=== PATIENT | male | born 2005 | race Caucasian/White ===

== ENCOUNTER 2023-03-15 06:08 | Inpatient (IN) ==
[2023-03-15] MEDS ORDERED: NS 1,000 ML IV 1,000 ML IV ONE ×2 (06:13→07:25)
[2023-03-15] MEDS ORDERED: NS 1,000 ML IV 1,000 ML ONE ×2 (06:14→07:30)
[2023-03-15] MEDS ORDERED: ZOFRAN INJ 4 MG VIAL IVP ONE (06:31)
[2023-03-15] MEDS ORDERED: ZOFRAN INJ 4 MG VIAL ONE (06:31)
[2023-03-15 06:36] LABS: BASOPHILS # (AUTO) 0.2 X10^3/uL (0.0-0.1); BASOPHILS % (AUTO) 0.7 % (0.2-1.0); EOSINOPHILS # (AUTO) 0.1 x10^3/uL (0.0-0.2); EOSINOPHILS % (AUTO) 0.3 % (0.9-2.9); HEMATOCRIT 54.3 % (42.0-54.0); HEMOGLOBIN 18.6 g/dL (13.5-18.0); LYMPHOCYTES # (AUTO) 4.3 X10^3/uL (1.3-2.9); LYMPHOCYTES % (AUTO) 15.8 % (21.0-51.0); MEAN CORPUSCULAR HEMOGLOBIN 30.8 pg (27.0-34.0); MEAN CORPUSCULAR HGB CONC 34.3 g/dL (33.0-35.0); MEAN CORPUSCULAR VOLUME 89.9 fL (80.0-100.0); MEAN PLATELET VOLUME 9.4 fL (7.4-11.0); MONOCYTES # (AUTO) 2.8 x10^3/uL (0.3-0.8); MONOCYTES % (AUTO) 10.2 % (0.0-13.0); NEUTROPHILS # (AUTO) 19.8 x10^3/uL (2.2-4.8); PLATELET COUNT 327 X10^3/uL (150.0-450.0); RED BLOOD COUNT 6.04 X10^6/uL (4.7-6.0); RED CELL DISTRIBUTION WIDTH 12.9 % (11.6-16.5); WHITE BLOOD COUNT 27.1 X10^3/uL (3.6-10.0)
--- NOTE | 2023-03-15 06:39 | DR.ABDMALE ---
HPI <Kayla Valenciaix - Last Filed: 03/16/23 05:22> Time seen Time Seen by Provider: 03/15/23 06:38 PCP Primary Care Physician: Ramon Valentino Chief Complaint Doctors Comments: Patient presents with Rt flank pain that began at 03:00am today. Patient states that the pain is severe.Patient had 1 episode of emesis this am.Patient is a type 1 Diabetic.The last time he took any insulin was yesterday afternoon. Patient states that he has had a cough productive of yellow green sputum x 1 week.Patient denies:headache,sob,dhiraj tmesis,diarrhea,hematochezia,chest pain,sob. Chief Complaint:: Patient brought into ER via EMS. pt complains of right lower quadrant pain that started at 3am this morning and vomiting x1 day. abdomen tender upon palpation. pt rates abdominal pain 9/. COVID-19 Coronavirus risk:travel/contact w/high risk person: No Has patient experienced Coronavirus symptoms: No Mode of arrival Mode of Arrival: EMS Timing Onset of Chief Complaint: 03/14/23 PMH <Kayla Valenciaix - Last Filed: 03/16/23 05:22> PMH Past Medical History: Yes Past Medical History: Diabetes Past Medical History Comment: type 1 DM Past Surgical History: Yes Family History History of Family Medical Conditions: No Social History Does patient currently use any type of tobacco product: Yes Have you used tobacco products in the last 12 months: Yes Type of Tobacco Use: Cigarettes Does any household member use tobacco: Yes Alcohol Use: None Do you use any recreational Drugs:: No Lives With: Friend Lives Where: Home Travel Risk Coronavirus risk:travel/contact w/high risk person: No Has patient experienced Coronavirus symptoms: No Infectious screening Have you traveled outside the country in the last 6 months?: No Isolation: Standard ROS <Kayla Valenciaix - Last Filed: 03/16/23 05:22> Review of Systems Constitutional: Malaise; negative Chills or Fever Eyes: No Symptoms Reported ENTM: No Symptoms Reported Respiratoy: No Symptoms Reported and Productive Cough (yellow-green sputum); negative Short of Breath, Wheezing or Hemoptysis Cardiovascular: No Symptoms Reported Gastrointestinal/Abdominal: Abdominal Pain, Nausea and Vomiting (since 12:00am) Genitourinary: No Symptoms Reported Neurological: Weakness; negative Headache Musculoskeletal: No Symptoms Reported Integumentary: No Symptoms Reported Hematologic/Lymphatic: No Symptoms Reported Endocrine: No Symptoms Reported Psychiatric: No Symptoms Reported All Other Systems: Reviewed and Negative PE <Kayla Anand - Last Filed: 03/16/23 05:22> Vital Signs Vital Signs: Temp Pulse Resp BP Pulse Ox O2 Del Method 03/15/23 07:16 20 03/15/23 08:31 114/69 03/15/23 08:31 104 H 99 03/15/23 08:30 104 H 99 03/15/23 08:15 93 H 100 03/15/23 08:12 103 H 100 03/15/23 08:00 106/65 03/15/23 07:30 130/78 03/15/23 07:03 126 H 97 03/15/23 07:01 132 H 96 03/15/23 07:01 146/61 03/15/23 07:00 122 H 98 03/15/23 06:56 114 H 97 03/15/23 06:56 118/58 03/15/23 06:45 131 H 98 03/15/23 06:34 131 H 96 03/15/23 06:46 22 03/15/23 06:13 97.5 F L 127 H 23 125/78 97 Room Air <Felipe Cnotreras - Last Filed: 03/15/23 11:12> Vital Signs Vital Signs: Temp Pulse Resp BP Pulse Ox O2 Del Method 03/15/23 07:16 20 03/15/23 08:31 114/69 03/15/23 08:31 104 H 99 03/15/23 08:30 104 H 99 03/15/23 08:15 93 H 100 03/15/23 08:12 103 H 100 03/15/23 08:00 106/65 03/15/23 07:30 130/78 03/15/23 07:03 126 H 97 03/15/23 07:01 132 H 96 03/15/23 07:01 146/61 03/15/23 07:00 122 H 98 03/15/23 06:56 114 H 97 03/15/23 06:56 118/58 03/15/23 06:45 131 H 98 03/15/23 06:34 131 H 96 03/15/23 06:46 22 03/15/23 06:13 97.5 F L 127 H 23 125/78 97 Room Air MDM <Kayla Anand - Last Filed: 03/16/23 05:22> Differential Diagnosis Differential Diagnosis: Appendicitis, Bowel Obstruction, Cholcystitis, Cholelethiasis, Diverticular disease, Pancreatitis, Urinary tract infection and Urolithiasis Other differential diagnosis: dka COURSE <Kayla Anand - Last Filed: 03/16/23 05:22> Treatment Treatment: Patient was brought to a monitored room.IV access was initiated and labs were drawn. Patient hr was 122-140's.NS 1liter ( 1st bolus) iv was administered. Patient was given zofran 4mg iv because of intractable vomiting. He was given morphine 2mg iv for Rt flank pain. Patient's serum glucose was 551.He received regular insulin 5 units iv.The CMP: revealed a C02 of 10, creat 2.14,CBC :wbc 27.1.Patient is a type 1 diabetic and is in DKA. Insulin drip at 6units/hr iv has been initiated (130lbs =59.0kg). Patients BG check is 384.Patient 's abd/pelvis CT w/o contrast: no diverticulitis,u rterolithiasis,kidney inflammation,appendicitis. Blood cx were ordered and patient has received rocephin 2g iv.Hgb A1c is 14,Etoh is neg,amylase and lipase wnl,crp wnl, serum acetone moderate,lactic acid pending.Patient iscurrently receving NS 1 liter( 2nd bolus) iv.CXR: no acute abnormality. Signed out to Dr Contreras <Felipe Contreras - Last Filed: 03/15/23 11:12> Treatment Treatment: Patient was brought to a monitored room.IV access was initiated and labs were drawn. Patient hr was 122-140's.NS 1liter ( 1st bolus) iv was a dministered. Patient was given zofran 4mg iv because of intractable vomiting. He was given morphine 2mg iv for Rt flank pain. Patient's serum glucose was 551.He received regular insulin 5 units iv.The CMP: revealed a C02 of 10, creat 2.14,CBC :wbc 27.1.Patient is a type 1 diabetic and is in DKA. Insulin drip at 6units/hr iv has been initiated (130lbs =59.0kg). Patients BG check is 384.Patient 's abd/pelvis CT w/o contrast: no diverticulitis,urterolithiasis,kidney inflammation,appendicitis. Blood cx were ordered and patient has received rocephin 2g iv.Hgb A1c is 14,Etoh is neg,amylase and lipase wnl,crp wnl, serum acetone moderate,lactic acid pending.Patient iscurrently receving NS 1 liter( 2nd bolus) iv.CXR: no acute abnormality. Signed out to Dr Contreras . 0842 - pt remaining stable, glucose coming down. Call put out to Dr Austin for admission. 0930 - Dr Austin notified by his RN, Nicki. ROR <Kayla Kika - Last Filed: 03/16/23 05:22> Labs Reviewed Laboratory Results Reviewed?: Yes Result Diagrams: 03/15/23 06:20 03/15/23 07:17 Laboratory: WBC 27.1 X10^3/uL (3.6-10.0) H 03/15/23 06:20 RBC 6.04 X10^6/uL (4.7-6.0) H 03/15/23 06:20 Hgb 18.6 g/dL (13.5-18.0) H 03/15/23 06:20 Hct 54.3 % (42.0-54.0) H 03/15/23 06:20 MCV 89.9 fL (80.0-100.0) 03/15/23 06:20 MCH 30.8 pg (27.0-34.0) 03/15/23 06:20 MCHC 34.3 g/dL (33.0-35.0) 03/15/23 06:20 RDW 12.9 % (11.6-16.5) 03/15/23 06:20 Plt Count 327 X10^3/uL (150.0-450.0) 03/15/23 06:20 Plt Count Comment Adequate (ADEQUATE) 03/15/23 06:20 MPV 9.4 fL (7.4-11.0) 03/15/23 06:20 Neut % (Auto) 73.0 % (42.0-75.0) 03/15/23 06:20 Lymph % (Auto) 15.8 % (21.0-51.0) L 03/15/23 06:20 Mcminn % (Auto) 10.2 % (0.0-13.0) 03/15/23 06:20 Eos % (Auto) 0.3 % (0.9-2.9) L 03/15/23 06:20 Baso % (Auto) 0.7 % (0.2-1.0) 03/15/23 06:20 Neut # (Auto) 19.8 x10^3/uL (2.2-4.8) H 03/15/23 06:20 Lymph # (Auto) 4.3 X10^3/uL (1.3-2.9) H 03/15/23 06:20 Mcminn # (Auto) 2.8 x10^3/uL (0.3-0.8) H 03/15/23 06:20 Eos # (Auto) 0.1 x10^3/uL (0.0-0.2) 03/15/23 06:20 Baso # (Auto) 0.2 X10^3/uL (0.0-0.1) H 03/15/23 06:20 Absolute Nucleated RBC 0.1 /100WBC 03/15/23 06:20 Total Counted 100 03/15/23 06:20 Neutrophils % (Manual) 51 % (39-76) 03/15/23 06:20 Band Neutrophils % 26 % (0-10) H 03/15/23 06:20 Lymphocytes % (Manual) 16 % (13-43) 03/15/23 06:20 Monocytes % (Manual) 7 % (4-9) 03/15/23 06:20 Plt Morphology Comment Normal (NORMAL) 03/15/23 06:20 RBC Morphology Normal (NORMAL) 03/15/23 06:20 Sample Site Rbra 03/15/23 08:22 ABG pH 7.190 (7.35-7.45) L* 03/15/23 08:22 ABG pCO2 25.0 mmHg (35.0-45.0) L 03/15/23 08:22 ABG pO2 96.0 mmHg (80.0-100.0) 03/15/23 08:22 ABG HCO3 9.5 mmol/L (22-26) L* 03/15/23 08:22 ABG O2 Saturation 95.0 % (90-100) 03/15/23 08:22 ABG Base Excess -17.1 mmol/L (-2.0-2.0) L 03/15/23 08:22 Prudencio Test N/a 03/15/23 08:22 A-a Gradient 22.0 mmHg 03/15/23 08:22 FiO2 21.0 03/15/23 08:22 Blood Gas Comments Pt dilshad well elj 03/15/23 08:22 Sodium 138 mmol/L (136-145) 03/15/23 07:17 Corrected Sodium 146 mmol/L (136-145) H 03/15/23 07:17 Potassium 5.0 mmol/L (3.5-5.1) 03/15/23 07:17 Chloride 94 mmol/L (98-107) L 03/15/23 07:17 Carbon Dioxide 11.5 mmol/L (21-32) L* 03/15/23 07:17 BUN 22 mg/dL (7-18) H 03/15/23 07:17 Creatinine 1.93 mg/dL (0.70-1.30) H 03/15/23 07:17 Est GFR (MDRD) Af Amer 58 (>60) L 03/15/23 07:17 Est GFR (MDRD) Non-Af 48 (>60) L 03/15/23 07:17 Glucose 454 mg/dL (65-99) H 03/15/23 07:17 POC Glucose (mg/dL) 310 mg/dL (65-99) H 03/15/23 08:33 Hemoglobin A1c 14.0 % 03/15/23 06:20 Lactic Acid 4.3 mmol/L (0.4-2.0) H 03/15/23 07:06 Calcium 9.1 mg/dL (8.5-10.1) 03/15/23 07:17 Corrected Calcium TNP 03/15/23 06:20 Total Bilirubin 1.00 mg/dL (0.2-1.0) 03/15/23 06:20 AST 26 Units/L (15-37) 03/15/23 06:20 ALT 31 Units/L (12-78) 03/15/23 06:20 Alkaline Phosphatase 143 Units/L (75-270) 03/15/23 06:20 Creatine Kinase 53 Units/L (39-308) 03/15/23 07:17 Troponin I High Sens < 4.0 ng/L (4.0-60.0) L 03/15/23 07:17 C-Reactive Protein 1.40 mg/L (0-3.0) 03/15/23 07:06 Total Protein 9.2 g/dL (6.4-8.2) H 03/15/23 06:20 Albumin 5.0 g/dL (3.4-5.0) 03/15/23 06:20 Globulin 4.2 g/dL (2.5-4.5) 03/15/23 06:20 Albumin/Globulin Ratio 1.2 Ratio (1.1-2.1) 03/15/23 06:20 Amylase 52 Units/L (25-115) 03/15/23 06:20 Lipase 46 Units/L (73-393) L 03/15/23 06:20 Ethyl Alcohol mg/dL < 3 mg/dL (0-19.9) 03/15/23 07:06 Acetone, Semi-Quant Moderate (NEGATIVE) H 03/15/23 07:17 XRAY XRAY Interpreted by: Radiologist X-ray Results: HISTORY Leukocytosis STUDY Chest AP portable COMPARISON None FINDINGS Heart size is normal. Shirley are normal. Lung chavez are clear. No pleural effusions are identified. Bony thorax is unremarkable. IMPRESSION No significant abnormality identified Electronically signed by: GENNA PEGUERO (March 15, 2023 07:18:32) HISTORY Nausea, right upper quadrant pain STUDY CT abdomen pelvis without contrast Technique: Axial noncontrast images with coronal and sagittal reformats. Dose reduction procedures were used with mA/kv adjusted for body size. THIS EXAMINATION IS LIMITED DUE TO THE LACK OF INTRAVENOUS CONTRAST. The examination was performed in this manner at the sole discretion of the ordering caregiver and without input from Radiology. COMPARISON None FINDINGS The lung bases are clear. The liver, spleen, adrenal glands, and pancreas are within normal limits only to the limitations of a examination performed without intravenous contrast. No opaque stones are present within the gallbladder. The kidneys are unobstructed and without stones. No ureteral calculi are identified. The appendix is retrocecal and normal. Abdominal aorta is normal in caliber. No enlarged intraperitoneal or retroperitoneal lymphadenopathy is identified. There are no findings suggestive of enteritis, colitis, or diverticulitis. The stomach is moderately distended with fluid which could be due to recent fluid ingestion, partial gastric outlet obstruction or gastroparesis. Examination of the pelvis demonstrated no evidence for pelvic masses, pelvic fluid, or pelvic lymphadenopathy. The bladder is distended but otherwise within normal limits to the limitations of an unenhanced examination. No lytic or blastic skeletal lesions of significance are identified. IMPRESSION No definite acute inflammatory process identified within the abdomen or pelvis but only to the limitations of an examination performed without intravenous and without oral contrast. Normal appendix No evidence for obstructing renal or ureteral calculi No opaque stones visualized within the gallbladder. If gallbladder disease is a strong clinical consideration gallbladder sonography would be of further diagnostic value in excluding nonopaque calculi. Moderate gastric distension Distended bladder Electronically signed by: GENNA PEGUERO (March 15, 2023 06:48:29) <Felipe Contreras - Last Filed: 03/15/23 11:12> Labs Reviewed Laboratory: WBC 27.1 X10^3/uL (3.6-10.0) H 03/15/23 06:20 RBC 6.04 X10^6/uL (4.7-6.0) H 03/15/23 06:20 Hgb 18.6 g/dL (13.5-18.0) H 03/15/23 06:20 Hct 54.3 % (42.0-54.0) H 03/15/23 06:20 MCV 89.9 fL (80.0-100.0) 03/15/23 06:20 MCH 30.8 pg (27.0-34.0) 03/15/23 06:20 MCHC 34.3 g/dL (33.0-35.0) 03/15/23 06:20 RDW 12.9 % (11.6-16.5) 03/15/23 06:20 Plt Count 327 X10^3/uL (150.0-450.0) 03/15/23 06:20 Plt Count Comment Adequate (ADEQUATE) 03/15/23 06:20 MPV 9.4 fL (7.4-11.0) 03/15/23 06:20 Neut % (Auto) 73.0 % (42.0-75.0) 03/15/23 06:20 Lymph % (Auto) 15.8 % (21.0-51.0) L 03/15/23 06:20 Mcminn % (Auto) 10.2 % (0.0-13.0) 03/15/23 06:20 Eos % (Auto) 0.3 % (0.9-2.9) L 03/15/23 06:20 Baso % (Auto) 0.7 % (0.2-1.0) 03/15/23 06:20 Neut # (Auto) 19.8 x10^3/uL (2.2-4.8) H 03/15/23 06:20 Lymph # (Auto) 4.3 X10^3/uL (1.3-2.9) H 03/15/23 06:20 Mcminn # (Auto) 2.8 x10^3/uL (0.3-0.8) H 03/15/23 06:20 Eos # (Auto) 0.1 x10^3/uL (0.0-0.2) 03/15/23 06:20 Baso # (Auto) 0.2 X10^3/uL (0.0-0.1) H 03/15/23 06:20 Absolute Nucleated RBC 0.1 /100WBC 03/15/23 06:20 Total Counted 100 03/15/23 06:20 Neutrophils % (Manual) 51 % (39-76) 03/15/23 06:20 Band Neutrophils % 26 % (0-10) H 03/15/23 06:20 Lymphocytes % (Manual) 16 % (13-43) 03/15/23 06:20 Monocytes % (Manual) 7 % (4-9) 03/15/23 06:20 Plt Morphology Comment Normal (NORMAL) 03/15/23 06:20 RBC Morphology Normal (NORMAL) 03/15/23 06:20 Sample Site Rb 03/15/23 08:22 ABG pH 7.190 (7.35-7.45) L* 03/15/23 08:22 ABG pCO2 25.0 mmHg (35.0-45.0) L 03/15/23 08:22 ABG pO2 96.0 mmHg (80.0-100.0) 03/15/23 08:22 ABG HCO3 9.5 mmol/L (22-26) L* 03/15/23 08:22 ABG O2 Saturation 95.0 % (90-100) 03/15/23 08:22 ABG Base Excess -17.1 mmol/L (-2.0-2.0) L 03/15/23 08:22 Prudencio Test N/a 03/15/23 08:22 A-a Gradient 22.0 mmHg 03/15/23 08:22 FiO2 21.0 03/15/23 08:22 Blood Gas Comments Pt dilshad well elj 03/15/23 08:22 Sodium 138 mmol/L (136-145) 03/15/23 07:17 Corrected Sodium 146 mmol/L (136-145) H 03/15/23 07:17 Potassium 5.0 mmol/L (3.5-5.1) 03/15/23 07:17 Chloride 94 mmol/L (98-107) L 03/15/23 07:17 Carbon Dioxide 11.5 mmol/L (21-32) L* 03/15/23 07:17 BUN 22 mg/dL (7-18) H 03/15/23 07:17 Creatinine 1.93 mg/dL (0.70-1.30) H 03/15/23 07:17 Est GFR (MDRD) Af Amer 58 (>60) L 03/15/23 07:17 Est GFR (MDRD) Non-Af 48 (>60) L 03/15/23 07:17 Glucose 454 mg/dL (65-99) H 03/15/23 07:17 POC Glucose (mg/dL) 310 mg/dL (65-99) H 03/15/23 08:33 Hemoglobin A1c 14.0 % 03/15/23 06:20 Lactic Acid 4.3 mmol/L (0.4-2.0) H 03/15/23 07:06 Calcium 9.1 mg/dL (8.5-10.1) 03/15/23 07:17 Corrected Calcium TNP 03/15/23 06:20 Total Bilirubin 1.00 mg/dL (0.2-1.0) 03/15/23 06:20 AST 26 Units/L (15-37) 03/15/23 06:20 ALT 31 Units/L (12-78) 03/15/23 06:20 Alkaline Phosphatase 143 Units/L (75-270) 03/15/23 06:20 Creatine Kinase 53 Units/L (39-308) 03/15/23 07:17 Troponin I High Sens < 4.0 ng/L (4.0-60.0) L 03/15/23 07:17 C-Reactive Protein 1.40 mg/L (0-3.0) 03/15/23 07:06 Total Protein 9.2 g/dL (6.4-8.2) H 03/15/23 06:20 Albumin 5.0 g/dL (3.4-5.0) 03/15/23 06:20 Globulin 4.2 g/dL (2.5-4.5) 03/15/23 06:20 Albumin/Globulin Ratio 1.2 Ratio (1.1-2.1) 03/15/23 06:20 Amylase 52 Units/L (25-115) 03/15/23 06:20 Lipase 46 Units/L (73-393) L 03/15/23 06:20 Ethyl Alcohol mg/dL < 3 mg/dL (0-19.9) 03/15/23 07:06 Acetone, Semi-Quant Moderate (NEGATIVE) H 03/15/23 07:17 Opioid <Kayla Anand - Last Filed: 03/16/23 05:22> Opioid Risk Tool Age (Alfredito box if 16-45): Yes History of Preadolescent Sexual Abuse: No Total: 1 Total Score Risk Category: Low Risk Copyright: Derrick WARD predicting aberrant behaviors <Felipe Contreras - Last Filed: 03/15/23 11:12> Opioid Risk Tool Total: 1 Total Score Risk Category: Low Risk Discharge Plan Diagnosis Discharge Problem: DKA, type 1, MODESTO (acute kidney injury), Leukocytosis Discharge Plan Patient Disposition: ADMITTED INPATIENT Condition: Stable
[2023-03-15] MEDS ORDERED: MORPHINE SULFATE INJ 2 MG INJ ONE (06:42)
[2023-03-15] MEDS ORDERED: MORPHINE SULFATE INJ 2 MG INJ IVP ONE (06:42)
[2023-03-15 06:44] LABS: ALKALINE PHOSPHATASE 143 Units/L (75-270); AMYLASE 52 Units/L (25-115); BLOOD UREA NITROGEN 20 mg/dL (7-18); CALCIUM 9.2 mg/dL (8.5-10.1); CHLORIDE 89 mmol/L (98-107); CREATININE 2.14 mg/dL (0.70-1.30); LIPASE 46 Units/L (73-393); POTASSIUM 4.1 mmol/L (3.5-5.1); SODIUM 135 mmol/L (136-145); TOTAL PROTEIN 9.2 g/dL (6.4-8.2); eGFR NON BLACK RACES 43 (>60)
--- NOTE | 2023-03-15 06:49 | CT ---
HISTORYNausea, right upper quadrant painSTUDYCT abdomen pelvis without contrastTechnique: Axial noncontrast images with coronal and sagittal reformats. Dose reduction procedures were used with mA/kv adjusted for body size. THIS EXAMINATION IS LIMITED DUE TO THE LACK OF INTRAVENOUS CONTRAST. The examination was performed in this manner at the sole discretion of the ordering caregiver and without input from Radiology.COMPARISONNoneFINDINGSThe lung bases are clear. The liver, spleen, adrenal glands, and pancreas are within normal limits only to the limitations of a examination performed without intravenous contrast. No opaque stones are present within the gallbladder. The kidneys are unobstructed and without stones. No ureteral calculi are identified. The appendix is retrocecal and normal. Abdominal aorta is normal in caliber. No enlarged intraperitoneal or retroperitoneal lymphadenopathy is identified. There are no findings suggestive of enteritis, colitis, or diverticulitis. The stomach is moderately distended with fluid which could be due to recent fluid ingestion, partial gastric outlet obstruction or gastroparesis. Examination of the pelvis demonstrated no evidence for pelvic masses, pelvic fluid, or pelvic lymphadenopathy. The bladder is distended but otherwise within normal limits to the limitations of an unenhanced examination. No lytic or blastic skeletal lesions of significance are identified.IMPRESSIONNo definite acute inflammatory process identified within the abdomen or pelvis but only to the limitations of an examination performed without intravenous and without oral contrast.Normal appendixNo evidence for obstructing renal or ureteral calculiNo opaque stones visualized within the gallbladder. If gallbladder disease is a strong clinical consideration gallbladder sonography would be of further diagnostic value in excluding nonopaque calculi.Moderate gastric distensionDistended bladderElectronically signed by: GENNA PEGUERO (March 15, 2023 06:48:29)
[2023-03-15] MEDS ORDERED: NovoLIN R (or HumuLIN R) IV ONE (07:07)
[2023-03-15] MEDS ORDERED: NovoLIN R (or HumuLIN R) ONE ×2 (07:08→07:13)
[2023-03-15 07:09] LABS: CARBON DIOXIDE 10.7 mmol/L (21-32)
[2023-03-15 07:10] LABS: COR NA(FOR HYPERGLY) 146 mmol/L (136-145); GLUCOSE 551 mg/dL (65-99)
[2023-03-15 07:11] LABS: ALANINE AMINOTRANSFERASE 31 Units/L (12-78); ASPARTATE AMINO TRANSFERASE 26 Units/L (15-37); BAND NEUTROPHILS % 26 % (0-10); PLATELET MORPHOLOGY COMMENT NORMAL (NORMAL)
--- NOTE | 2023-03-15 07:19 | RAD ---
HISTORYLeukocytosisSTUDYChest AP portableCOMPARISONNoneFINDINGSHeart size is normal. Shirley are normal. Lung chavez are clear. No pleural effusions are identified. Bony thorax is unremarkable.IMPRESSIONNo significant abnormality identifiedElectronically signed by: GENNA PEGUERO (March 15, 2023 07:18:32)
[2023-03-15] MEDS ORDERED: MYXREDLIN 100 UNIT/100 ML BAG 100 UNIT/100 ML PLAST..BAG IV PRN (07:27)
[2023-03-15] MEDS ORDERED: MYXREDLIN 100 UNIT/100 ML BAG 100 UNIT/100 ML PLAST..BAG IV ONE (07:29)
[2023-03-15 07:33] LABS: BLOOD ALCOHOL < 3 mg/dL (0-19.9)
[2023-03-15] MEDS ORDERED: NS 100 ML IV 100 ML ONE (07:47)
[2023-03-15] MEDS ORDERED: ROCEPHIN VIAL 2 GRAMS ONE (07:47)
[2023-03-15] MEDS: ROCEPHIN VIAL 2 GRAMS 2 G in NS 100 ML IV 100 ML IV SCH ×2 (07:56→09:24)
[2023-03-15 08:00] LABS: BLOOD UREA NITROGEN 22 mg/dL (7-18); CALCIUM 9.1 mg/dL (8.5-10.1); CHLORIDE 94 mmol/L (98-107); COR NA(FOR HYPERGLY) 146 mmol/L (136-145); CREATINE KINASE 53 Units/L (39-308); CREATININE 1.93 mg/dL (0.70-1.30); GLUCOSE 454 mg/dL (65-99); SODIUM 138 mmol/L (136-145); eGFR NON BLACK RACES 48 (>60)
[2023-03-15 08:02] LABS: CARBON DIOXIDE 11.5 mmol/L (21-32)
[2023-03-15 08:13] LABS: LACTIC ACID 4.3 mmol/L (0.4-2.0)
[2023-03-15 08:31] LABS: ABG BASE EXCESS -17.1 mmol/L (-2.0-2.0)
[2023-03-15 08:32] LABS: ABG HCO3 9.5 mmol/L (22-26)
[2023-03-15] MEDS ORDERED: ZOFRAN INJ 4 MG VIAL IVP PRN (10:07)
[2023-03-15] MEDS: NS 1,000 ML IV 1,000 ML with SODIUM BICARBONATE 8.4% INJ ADULT 50 ML IV SCH ×4 (10:22→18:19)
[2023-03-15 10:32] LABS: APPEARANCE,URINE CLEAR (CLEAR); BACTERIA,URINE TRACE /HPF (NEGATIVE); BILIRUBIN,URINE NEGATIVE (NEGATIVE); BLOOD/HEMOGLOBIN,URINE 1+ (NEGATIVE); COLOR,URINE PALE YELLOW (YELLOW); GLUCOSE, URINE 4+ (NEGATIVE); KETONES,URINE 4+ (NEGATIVE); LEUKOCYTE ESTERASE ,URINE NEGATIVE (NEGATIVE); NITRITES,URINE NEGATIVE (NEGATIVE); PROTEIN,URINE 2+ (NEGATIVE); RBC,URINE NONE SEEN /HPF (0-3); SQUAMOUS EPITHELIAL CELL,UR NEGATIVE /HPF (NEGATIVE); UROBILINOGEN,URINE NORMAL (NORMAL)
[2023-03-15 10:33] LABS: HYALINE CASTS, URINE RARE /LPF (NEGATIVE)
[2023-03-15] MEDS ORDERED: CHLORASEPTIC SPRAY MT PRN (17:45)
[2023-03-15] MEDS ORDERED: NICOTINE PATCH TD SCH (23:45)
[2023-03-16] MEDS: NS 1,000 ML IV 1,000 ML with SODIUM BICARBONATE 8.4% INJ ADULT 50 ML IV SCH ×2 (02:35)
[2023-03-16 05:11] LABS: ABG ALLEN TEST POS; ABG BASE EXCESS 1.8 mmol/L (-2.0-2.0); ABG HCO3 25.7 mmol/L (22-26)
[2023-03-16 05:12] LABS: BASOPHILS % (AUTO) 0.5 % (0.2-1.0); EOSINOPHILS # (AUTO) 0.1 x10^3/uL (0.0-0.2); EOSINOPHILS % (AUTO) 1.6 % (0.9-2.9); LYMPHOCYTES # (AUTO) 2.7 X10^3/uL (1.3-2.9); LYMPHOCYTES % (AUTO) 28.8 % (21.0-51.0); MEAN CORPUSCULAR HEMOGLOBIN 30.8 pg (27.0-34.0); MEAN CORPUSCULAR HGB CONC 36.5 g/dL (33.0-35.0); MEAN CORPUSCULAR VOLUME 84.6 fL (80.0-100.0); MEAN PLATELET VOLUME 8.6 fL (7.4-11.0); MONOCYTES # (AUTO) 0.9 x10^3/uL (0.3-0.8); MONOCYTES % (AUTO) 9.3 % (0.0-13.0); NEUTROPHILS # (AUTO) 5.6 x10^3/uL (2.2-4.8); NEUTROPHILS % (AUTO) 59.8 % (42.0-75.0); PLATELET COUNT 194 X10^3/uL (150.0-450.0); RED BLOOD COUNT 4.38 X10^6/uL (4.7-6.0); RED CELL DISTRIBUTION WIDTH 13.1 % (11.6-16.5)
[2023-03-16 05:18] LABS: ALANINE AMINOTRANSFERASE 17 Units/L (12-78); ALBUMIN 2.9 g/dL (3.4-5.0); ALKALINE PHOSPHATASE 70 Units/L (75-270); ASPARTATE AMINO TRANSFERASE 7 Units/L (15-37); BLOOD UREA NITROGEN 8 mg/dL (7-18); CARBON DIOXIDE 27.9 mmol/L (21-32); CHLORIDE 107 mmol/L (98-107); COR CA(FOR HYPOALB) 8.9 mg/dL (8.5-10.1); COR NA(FOR HYPERGLY) 144 mmol/L (136-145); CREATININE 1.29 mg/dL (0.70-1.30); GLUCOSE 162 mg/dL (65-99); SERUM ACETONE SMALL (NEGATIVE); SODIUM 143 mmol/L (136-145); TOTAL PROTEIN 5.6 g/dL (6.4-8.2); eGFR NON BLACK RACES > 60 (>60)
[2023-03-16 05:28] LABS: POTASSIUM 2.8 mmol/L (3.5-5.1)
[2023-03-16 05:34] LABS: HEMOGLOBIN 13.5 g/dL (13.5-18.0); WHITE BLOOD COUNT 9.4 X10^3/uL (3.6-10.0)
[2023-03-16] MEDS ORDERED: MAGNESIUM SULFATE 1 GRAM/100 mL PREMIX 1 G/100 ML BAG IV PRN (05:36)
[2023-03-16] MEDS ORDERED: K-DUR TAB 20 MEQ PO PRN (05:36)
[2023-03-16] MEDS ORDERED: POTASSIUM CHLORIDE LIQ 20 MEQ UDC PO PRN (05:36)
[2023-03-16] MEDS ORDERED: K-DUR TAB 20 MEQ PO ONE (05:39)
[2023-03-16 07:43] VITALS: TEMP 98
[2023-03-16] MEDS: ROCEPHIN VIAL 2 GRAMS 2 G in NS 100 ML IV 100 ML IV SCH (08:15)
[2023-03-16 08:17] VITALS: O2SAT 97
[2023-03-16 09:20] VITALS: BP 108/53; PULSE 100
[2023-03-16] MEDS ORDERED: NS 1,000 ML IV 1,000 ML IV ONE (09:40)
[2023-03-16 10:15] VITALS: BMI 20.1
== END 2023-03-16 10:20 | disposition home or self-care (01) | DRG 638 ==
LOC: ER 06:08 → ICU 08:44
PROVIDERS: ADMIT Internal Medicine; ATTEND Internal Medicine
DX: E10.65 Type 1 diabetes mellitus with hyperglycemia; R11.2 Nausea with vomiting, unspecified; R79.89 Other specified abnormal findings of blood chemistry; N17.8 Other acute kidney failure; E10.10 Type 1 diabetes mellitus with ketoacidosis without coma